=== PATIENT | female | born 1975 | race Caucasian/White ===

== ENCOUNTER 2018-09-22 20:04 | Emergency (ER) | payer MEDICAID ==
[~2018-09-22] VITALS: Ht 154.9 cm; Wt 109.9 kg
[~2018-09-22 20:04] MED LIST: CEPH-443 PO; IBUP-1542 PO
[2018-09-22 20:42] VITALS: Ht 154.9 cm; Wt 109.9 kg
[2018-09-22] MEDS ORDERED: KETOROLAC 30 MG INJ IM STA (23:16)
[2018-09-22] MEDS ORDERED: SENN-120 PO (23:17)
[2018-09-22] MEDS ORDERED: IBUP-1542 PO (23:17)
[2018-09-22] MEDS ORDERED: DOCU-144 PO (23:17)
[2018-09-22 23:32] VITALS: BP 140/80; PULSE 72; RESP 18
--- NOTE | 2018-09-23 00:09 | ERD ---
ER Documentation Chief Complaint Chief Complaint L flank pain since this AM HPI Patient is a 43-year-old female with no medical problems who presents with left- sided flank pain. She had a fall 1 year ago and started with pain this morning in the left flank. The pain has been worsening over the day. The patient has no fevers. The patient has had no treatment as of yet. There is no urinary symptoms. Upon review of old medical records the patient has multiple visits to the ER for various complaints. The patient does not currently have a primary doctor. ROS All systems reviewed and are negative except as per history of present illness. Medications Home Meds Active Scripts Sennosides* (Senna Lax*) 8.6 Mg Tablet, 1 TAB PO DAILY, #30 TAB Prov:JEAN-CLAUDE NORRIS MD 09/22/18 Docusate Sodium* (Colace*) 100 Mg Capsule, 100 MG PO TID, #30 CAP Prov:JEAN-CLAUDE NORRIS MD 09/22/18 Ibuprofen* (Motrin*) 600 Mg Tab, 600 MG PO Q6H PRN for PAIN AND OR ELEVATED TEMP, #30 TAB Prov:JEAN-CLAUDE NORRIS MD 09/22/18 Ibuprofen* (Motrin*) 600 Mg Tab, 600 MG PO Q6, #20 TAB Prov:MARYAN CLAROS MD 08/13/16 Cephalexin* (Keflex*) 500 Mg Capsule, 500 MG PO QID for 5 Days, CAP Prov:MARYAN CLAROS MD 08/13/16 Allergies Allergies: Coded Allergies: Penicillins (Verified Adverse Reaction, Intermediate, SOB, 04/23/14) PMhx/Soc History of Surgery: Yes () Anesthesia Reaction: No Hx Neurological Disorder: No Hx Respiratory Disorders: No Hx Cardiac Disorders: No Hx Psychiatric Problems: No Hx Miscellaneous Medical Probl: No Hx Alcohol Use: Yes (Socially) Hx Substance Use: No Hx Tobacco Use: Yes Smoking Status: Current every day smoker FmHx Family History: No diabetes Physical Exam Vitals Vital Signs Date Temp Pulse Resp B/P (MAP) Pulse Ox O2 O2 Flow FiO2 Time Delivery Rate 09/22/18 97.6 72 18 140/80 98 Room Air 23:32 (100) 09/22/18 97.6 72 18 140/80 98 20:42 (100) Physical Exam Const: No acute distress Head: Atraumatic Eyes: Normal Conjunctiva ENT: Normal External Ears, Nose and Mouth. Neck: Full range of motion. No meningismus. Resp: Clear to auscultation bilaterally Cardio: Regular rate and rhythm, no murmurs Abd: Soft, non tender, non distended. Normal bowel sounds Skin: No petechiae or rashes Back: No midline or flank tenderness Ext: No cyanosis, or edema Neur: Awake and alert Psych: Normal Mood and Affect Results 24 hrs Current Medications Medications Dose Sig/Gracie Start Time Status Last (Trade) Ordered Route PRN Stop Time Admin Dose Reason Admin Ketorolac 30 mg ONCE STAT 09/22/18 DC 09/22/18 Tromethamine IM 23:16 09/22/18 23:40 (Toradol) 23:17 Procedures/MDM Patient is a 43-year-old female who presents with left-sided flank pain. The patient is otherwise well-appearing with stable vital signs. I believe the patient likely has musculoskeletal lower back pain with possible sciatic type pain. The patient was given Toradol and will be discharged home. The patient can take ibuprofen every 6 hours as needed for pain or inflammation. The patient can return for any worsening symptoms. Departure Diagnosis: Primary Impression: Flank pain Condition: Fair Patient Instructions: Flank Pain, Uncertain Cause Referrals: COMM[facility]ITY CLINICS YOU HAVE RECEIVED A MEDICAL SCREENING EXAM AND THE RESULTS INDICATE THAT YOU DO NOT HAVE A CONDITION THAT REQUIRES URGENT TREATMENT IN THE EMERGENCY DEPARTMENT. FURTHER EVALUATION AND TREATMENT OF YOUR CONDITION CAN WAIT UNTIL YOU ARE SEEN IN YOUR DOCTORS OFFICE WITHIN THE NEXT 1-2 DAYS. IT IS YOUR RESPONSIBILITY TO MAKE AN APPOINTMENT FOR FOLOW-UP CARE. IF YOU HAVE A PRIMARY DOCTOR --you should call your primary doctor and schedule an appointment IF YOU DO NOT HAVE A PRIMARY DOCTOR YOU CAN CALL OUR PHYSICIAN REFERRAL HOTLINE AT IF YOU CAN NOT AFFORD TO SEE A PHYSICIAN YOU CAN CHOSE FROM THE FOLLOWING [facility] [address] [place]. [facility] [address] [facility]. [facility] [address] [facility] [address] [facility] [address] [facility]. [facility] [address] Additional Instructions: Call your primary care doctor TOMORROW for an appointment during the next 1-2 days.See the doctor sooner or return here if your condition worsens before your appointment time. JEAN-CLAUDE NORRIS MD Sep 23, 2018 00:09
== END 2018-09-22 23:56 | disposition home or self-care (01) ==
LOC: E/R 20:04
DX: R10.9 Unspecified abdominal pain (principal); F17.210 Nicotine dependence, cigarettes, uncomplicated
CPT/HCPCS: 96372; J1885; Z7502